=== PATIENT | male | born 1970 | race Two or more races ===

== ENCOUNTER 2024-04-07 09:54 | Emergency (ER) | payer MEDICAID, SELFPAY ==
--- NOTE | 2024-04-07 10:39 | PD.EDRME ---
Rapid Medical Screening Exam E Arrival date/time: 04/07/24 09:54 54-year-old male with a history of liver cirrhosis presents to the emergency room with a chief complaint of vomiting bright red blood. This episode occurred on 04/05/2024 and states he has not had another episode of vomiting blood but came to the emergency room due to his history of cirrhosis. I have greeted and performed a focused initial assessment of this patient. A comprehensive ED assessment and evaluation of the patient, analysis of all test results, and completion of the medical decision making process will be conducted by additional ED providers. Chief Complaint: Nausea/Vomiting/Diarrhea Vital signs reviewed by provider: Yes
[2024-04-07 10:52] VITALS: BP 131/84; PULSE 59; RESP 16; TEMP 36.7; O2SAT 100; BMI 35.7
[2024-04-07 11:26] LABS: Basophils % (Auto) 0 % (0-2.5); Eosinophils # (Auto) 0.1 Thou/mm3 (0.0-0.5); Eosinophils % (Auto) 3 % (0-10); Hematocrit 34.7 % (41.0-53.0); Hemoglobin 11.8 g/dL (13.5-16.0); Immature Granulocytes % (Auto) 1 % (0-0); Immature Granulocytes Auto 0.03 Thou/mm3 (0.00-0.00); Lymphocytes # (Auto) 0.8 Thou/mm3 (1.0-4.8); Lymphocytes % (Auto) 18 % (10-50); Mean Corpuscular Hemoglobin 31.1 pg (25.0-35.0); Mean Corpuscular Volume 91 fL (80-100); Monocytes # (Auto) 0.5 Thou/mm3 (0.0-0.8); Monocytes % (Auto) 10 % (0-12); Neutrophils # (Auto) 3.2 Thou/mm3 (1.8-7.7); Neutrophils % (Auto) 68 % (37-80); Nucleated Red Blood Cell % 0 /100 WBC (0); RDW Standard Deviation 46.4 fL (35.1-43.9); White Blood Count 4.7 Thou/mm3 (3.8-10.6)
[2024-04-07 11:45] LABS: Partial Thromboplastin Time 27.8 Seconds (22.0-36.0); Prothrombin Time 11.4 Seconds (9.0-12.2)
[2024-04-07 11:47] LABS: Alanine Aminotransferase 34 U/L (10-49); Albumin/Globulin Ratio 1.3 (1.2-2.2); Alkaline Phosphatase 189 U/L (46-116); Anion Gap 8 (7-16); Aspartate Amino Transferase 58 U/L (0-34); BUN/Creatinine Ratio 16 Ratio (12-20); Bilirubin,Total 0.7 mg/dL (0.3-1.2); Blood Urea Nitrogen 11 mg/dL (9-23); Carbon Dioxide 25.9 mMol/L (20.0-31.0); Chloride 107 mMol/L (98-107); Creatinine (Component) 0.7 mg/dL (0.6-1.3); Estimated Creatinine Clearance 141.1 mL/min (>60); Glucose 87 mg/dL (74-106); Lipase 70 U/L (12-53); Osmolality,Calculated 279 (275-295); Potassium 3.9 mMol/L (3.4-5.1); Sodium 141 mMol/L (136-145); eGFR > 60 See Note
[2024-04-07 12:19] LABS: Collection Type, Urine Clean Catch; Squamous Epithelial Cell,Urine 0 /hpf (0-5)
[2024-04-07 12:27] LABS: Bilirubin,Urine Negative (Negative); Blood,Urine Negative (Negative); Clarity,Urine Clear (Clear/Hazy); Color,Urine Lt-Yellow (Lt Yel-Yel); Glucose, Urine Negative (Negative); Ketones,Urine Negative (Negative); Leukocyte Esterase,Urine Negative (Negative); Nitrite,Urine Negative (Negative); Protein,Urine Negative (Neg - Trace); RBC,Urine 2 /hpf (0-3); Specific Gravity,Urine 1.007 (1.001-1.035); WBC,Urine 1 /hpf (0-5)
[2024-04-07 12:39] LABS: Platelet Count 57 Thou/mm3 (140-440); Slide Review Platelets confirmed
--- NOTE | 2024-04-07 12:39 | PD.EDNV ---
Nausea/Vomit./Diarrhea-RME/HPI General Chief complaint: Nausea/Vomiting/Diarrhea Stated complaint: VOMITING ON 04/05. HX LIVER CHIRROHIS Time Seen by Provider: 04/07/24 11:33 Arrival date/time: 04/07/24 09:54 RME / HPI RME / HPI Narrative: 04/07/24 09:54 54-year-old male with a history of liver cirrhosis presents to the emergency room with a chief complaint of vomiting bright red blood. This episode occurred on 04/05/2024 and states he has not had another episode of vomiting blood but came to the emergency room due to his history of cirrhosis. I have greeted and performed a focused initial assessment of this patient. A comprehensive ED assessment and evaluation of the patient, analysis of all test results, and completion of the medical decision making process will be conducted by additional ED providers. This section includes all my notes and documentations, including HPI, PE, and ED course.? Jason Bettencourt MD HPI: 54 year old male with history of liver cirrhosis, GERD, hypertension, previously a heavy drinker and quit 8 years ago presents to the ED for evaluation of vomiting blood. Patient reports yesterday had two episodes of vomiting dark red blood with clots. Denies any bright red blood in emesis or stool. Denies abdominal pain. Denies fevers, chills, chest pain, cough, shortness of breath, diarrhea, or urinary symptoms. No other complaints. mentioned patients current medications include: Omeprazole, Pantoprazole, Lactulose, and medication for hypertension. ROS: All negative except as documented in HPI. Physical Exam: General:? Alert and oriented.? No acute distress when remaining still.?? Eyes:? Conjunctivae and lids clear.? ENT:? No nasal congestion.? Neck:? Supple.? Heart:? RRR.? Lungs:? No respiratory distress.? Good air movement.? No rhonchi, wheezing, rales.?? Abdomen:? Soft and nontender.?? Legs:? No clubbing, cyanosis, edema.? Skin:? Warm and dry.?? Neuro:? Alert and oriented X 3.?? Blood tests and urine tests?unremarkable. At this point, diagnoses include?hematemesis the day before yesterday. Patient remained stable. I discussed the case with our GI, Dr. Brown.? About the presentation and exam and diagnostics and treatments here.? And possible need of further care in the hospital.? Recommended outpatient workup. Prescribed famotidine and recommended more outpatient workup. Based on my best medical judgment, made decision no further evaluation or treatment indicated at this time.? Patient understands and agrees to the discharge instructions customized and printed, see below. Discharge Instructions from Dr. Bettencourt printed for you: 1. We discussed your case (including throwing up blood the day before yesterday) with Dr. Brown, our account development executive, and we followed his instructions. 2. Take famotidine 40 mg in the morning and evening to help protect future gastrointestinal bleeding. 3. Zofran for nausea/vomiting. 4. See your private doctor on 04/08/2023 for recheck and further care. Ask to review all test results and official radiology reports, to make sure you receive all necessary follow-ups and monitoring. To make sure there is no serious intra-abdominal condition, ask for help with more investigation not available here in the ER. Such as EGD or scoping the stomach, colonoscopy or scoping the colon, and referral to see account development executive. 5. Seek immediate medical care if you throw up blood again or with any concerns. Instrucciones de nae del Dr. Bettencourt impresas para usted: 1. Hablamos de espino suzi (incluido el v?lupillo con brenda anteayer) con el Dr. Brown, nuestro gastroenter?logo, y seguimos jesus instrucciones. 2. Wenonah famotidina 40 mg por la ma?collin y por la noche para ayudar a proteger contra futuras hemorragias gastrointestinales. 3. Zofran para las n?useas y los v?mitos. 4. Visite a espino m?dico privado el 2023 para volver a realizar un control y recibir m?s atenci?n. Pida que se revisen todos los resultados de las pruebas y los informes radiol?gicos oficiales para asegurarse de recibir todos los seguimientos y la monitorizaci?n necesarios. Para asegurarse de que no haya rahel afecci?n intraabdominal grave, solicite ayuda con m?s investigaciones que no est?n disponibles aqu? en la quita de emergencias, nilsa rahel endoscopia g?strica o rahel endoscopia del est?bonilla, rahel colonoscopia o rahel endoscopia del colon y rahel derivaci?n para [place] a un gastroenter?logo. 5. Busque atenci?n m?dica inmediata si vuelve a vomitar brenda o si tiene alguna inquietud. Related Data Previous Rx's ?Medication ?Instructions ?Recorded famotidine 40 mg tablet 40 mg PO BID #60 tabs 04/07/24 ondansetron 4 mg disintegrating 4 mg PO TID PRN nausea and 04/07/24 tablet vomiting 5 days #10 tabs Allergies Allergy/AdvReac Type Severity Reaction Status Date / Time No Known Allergies Allergy Verified 08/15/23 16:23 Review of Systems Review of Systems Systems Reviewed: All systems reviewed, normal except as documented Past Medical History Past Medical History GASTROINTESTINAL: Positive Gastrointestinal Disorders and Esophageal Varices OTHER HISTORY: Positive Chicken Pox Social History SMOKING STATUS: Former smoker ED Exam Narrative Physical exam: As noted in HPI Course Quality Measures none Orders Category Date Time Status CBC Stat Lab 04/07/24 11:00 Completed CMP [Comprehensive Metabolic Panel] Stat Lab 04/07/24 11:00 Completed Lipase Stat Lab 04/07/24 11:00 Completed PT [Prothrombin Time with INR] Stat Lab 04/07/24 11:00 Completed PTT [Partial Thromboplastin Time] Stat Lab 04/07/24 11:00 Completed UA [Urinalysis] Stat Lab 04/07/24 12:06 Completed Urine Culture Stat Lab 04/07/24 12:06 Received Vital Signs Vital signs: Vital Signs Temperature 98.0 F 04/07/24 10:52 Pulse Rate 59 L 04/07/24 10:52 Respiratory Rate 16 04/07/24 10:52 Blood Pressure 131/84 H 04/07/24 10:52 Pulse Oximetry (%) 100 04/07/24 10:52 Oxygen Delivery Method Room Air 04/07/24 10:52 Pulse ox is 100% on room air which is adequate. Nausea/Vomiting/Diarrhea MDM Narrative MDM Narrative:: ISade, am scribing for and in the presence of Dr. Bettencourt. Patient data External records reviewed:: [facility] previous records (I reviewed ED visit on 08/15/2023 ) Clinical information provided by:: patient and spouse Social determinants that could affect healthcare access:: none Patient has the following chronic illnesses:: liver cirrhosis, GERD, hypertension, previously a heavy drinker and quit 8 years ago How is presenting disease/condition affected by chronic disease/condition?: exacerbated by Evaluation data The following diagnostics were reviewed and interpreted by me:: lab results Lab and/or radiology exams considered but not ordered:: None Interpretation Summary: Hematemesis the day before yesterday Medications / Prescriptions Medications / Prescriptions considered but not ordered:: None Medication administrations:: None Consultations Consultation(s) initiated? (list below): Yes Consultation #1 (Physician, Specialty, Details): I spoke with GI Dr. Brown. Discussed patients PMHx, HPI, ED course, exam findings, labs results. Time: 12:45 Diagnosis Nausea Differential Diagnosis: food poisoning, gastroenteritis, drug-induced nausea and vomiting, dehydration and other (GI bleed, liver cirrhosis ) Most likely diagnosis given after review of the tests above:: Hematemesis Admission Indicated Admission indicated?: not indicated Explain why admission is indicated or not indicated:: Does not meet admission criteria Admission Request Was there a request for admission?: No Disposition Plan Disposition Plan: Discharge Discharge Attestation Discharge Attestation: The patient and all family members were given an opportunity to ask questions and understood the discharge instructions. Discharge instructions specifically effects, indications for sooner follow up or return to the emergency department, and the expected course of current diagnosis. Patient condition: Stable Discharge Plan Plan Patient Disposition: HOME (Self Care) Prescriptions/Referrals Prescriptions/Med Rec: New famotidine 40 mg tablet 40 mg PO BID Qty: 60 0RF ondansetron 4 mg tablet,disintegrating 4 mg PO TID PRN (Reason: nausea and vomiting) 5 Days Qty: 10 0RF Referrals: Сергей Mccain MD [Primary Care Provider] - In 1 week Problem List Clinical Impression: Hematemesis Patient/Caregiver Discharge Instructions Discharge Activity: activity as tolerated Additional Instructions: Discharge Instructions from Dr. Bettencourt printed for you: 1. We discussed your case (including throwing up blood the day before yesterday) with Dr. Brown, our account development executive, and we followed his instructions. 2. Take famotidine 40 mg in the morning and evening to help protect future gastrointestinal bleeding. 3. Zofran for nausea/vomiting. 4. See your private doctor on 04/08/2023 for recheck and further care. Ask to review all test results and official radiology reports, to make sure you receive all necessary follow-ups and monitoring. To make sure there is no serious intra-abdominal condition, ask for help with more investigation not available here in the ER. Such as EGD or scoping the stomach, colonoscopy or scoping the colon, and referral to see account development executive. 5. Seek immediate medical care if you throw up blood again or with any concerns. Instrucciones de nae del Dr. Bettencourt impresas para usted: 1. Hablamos de espino suzi (incluido el v?lupillo con brenda anteayer) con el Dr. Brown, nuestro gastroenter?logo, y seguimos jesus instrucciones. 2. Wenon[place] famotidina 40 mg por la ma?collin y por la noche para ayudar a proteger contra futuras hemorragias gastrointestinales. 3. Zofran para las n?useas y los v?mitos. 4. Visite a espino m?dico privado el 2023 para volver a realizar un control y recibir m?s atenci?n. Pida que se revisen todos los resultados de las pruebas y los informes radiol?gicos oficiales para asegurarse de recibir todos los seguimientos y la monitorizaci?n necesarios. Para asegurarse de que no haya rahel afecci?n intraabdominal grave, solicite ayuda con m?s investigaciones que no est?n disponibles aqu? en la quita de emergencias, nilsa rahel endoscopia g?strica o rahel endoscopia del est?[place], rahel colonoscopia o rahel endoscopia del colon y rahel derivaci?n para [place] a un gastroenter?logo. 5. Busque atenci?n m?dica inmediata si vuelve a vomitar brenda o si tiene alguna inquietud. Print Language: Ch[place] Stand Alone Forms: Tali Award Info., Patient Portal Info Letter
== END 2024-04-07 13:18 | disposition home or self-care (01) ==
PROVIDERS: Nurse Practitioner Family; Emergency Provider Emergency Medicine; PCP Family Medicine
DX: K92.0 Hematemesis (principal)
CPT/HCPCS: 36415; 80053; 81001; 83690; 85025; 85610; 85730; 87086; 99283